=== PATIENT | female | born 1980 | race Caucasian/White ===

== ENCOUNTER 2018-12-02 10:03 | Day surgery (SDC) | payer BC ==
[2018-12-02] MEDS ORDERED: LIDOCAINE 2% (SDV) 5 ML INJ (11:19)
[2018-12-02] MEDS ORDERED: PROPOFOL 60 ML (11:19)
== END 2018-12-02 12:51 | disposition home or self-care (01) ==
LOC: GIL 10:03
DX: R19.4 Change in bowel habit (principal); K64.8 Other hemorrhoids; K21.9 Gastro-esophageal reflux disease without esophagitis; K29.60 Other gastritis without bleeding
CPT/HCPCS: 43239; 84703; 88305